=== PATIENT | male | born 1955 | race Caucasian/White ===

== ENCOUNTER 2016-09-24 13:33 | Day surgery (SDC) | payer OTHER ==
--- NOTE | ~2016-09-24 | OP ---
Record Of Operation [facility] [address] [place]. [address] NAME: MARNIE SHELDON : 53 STATUS : [facility] PAT#: [id number] AGE: 60 ADM/REG DATE : 09/24/16 MR#: [id number] REPORT SERV DATE: 09/25/16 DICTATED BY: STEPHANIE AMADOR DATE: 09/24/16 REPORT STATUS : Draft TRANSCRIBED BY: MODL DATE: 09/24/16 DATE OF PROCEDURE: 09/24/2016 PREOPERATIVE DIAGNOSIS: Left knee medial meniscal tear. 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 PROCEDURE: Left knee arthroscopy with partial medial meniscectomy, mechanical and thermal chondroplasty patellofemoral joint, medial and lateral femoral condyle and debridement of notch with removal of osteophyte. SURGEON: Stephanie Amador M.D. BOBBIN WINDER: Zhanna Sawyer. ANESTHESIA: General anesthetic. ESTIMATED BLOOD LOSS: 5 mL. FLUID: 800 mL crystalloid. TOURNIQUET TIME: Zero. DRAINS: None. COMPLICATIONS: None. INDICATION: This 60-year-old patient presented to office with an injury to his knee with radiographs which were showing minimal arthritic change. MRI scan indicated medial meniscal tear. He had pain in the medial joint. The patient was apprised of diagnosis and treatment recommendations for operative treatment for knee arthroscopy. He understood the possible risks and complications, agreed to proceed. DESCRIPTION OF PROCEDURE: He was identified in the preop holding area. His operative site was marked with yes. The patient was taken to the operating suite and placed in supine position on the operating table. General anesthetic was successfully administered. The patient's left lower extremity was then prepped and draped to expose the knee circumferentially in the leg proctor. A time-out was called. He was identified, correct operative extremity identified, and verification of antibiotic Ancef administration. The patient had a stab incision placed laterally to parapatellar tendon with an #11 scalpel blade. The arthroscope was introduced. The medial port was established under needle localization as a working portal, with again a stab incision. The patient had shaver introduced and partial anterior synovectomy was performed. Notch osteophytes were noted which were debrided as well as some synovitis in the notch area. The patellofemoral joint Record Of [place] [address] [place]. [address] NAME: MARNIE SHELDON : 53 STATUS : [facility] PAT#: [id number] AGE: 60 ADM/REG DATE : 09/24/16 MR#: [id number] REPORT SERV DATE: 09/25/16 DICTATED BY: STEPHANIE AMADOR DATE: 09/24/16 REPORT STATUS : Draft TRANSCRIBED BY: MODTereza DATE: 09/24/16 also was debrided using the shaver as well as lateral medial femoral condyle particularly 60% of the medial femoral condyle weightbearing zone. The meniscus showed a complex tear which was debrided using shaver and basket rongeur in a V-shaped pattern. Posterior horn was stable. Lateral meniscus was unremarkable as was the lateral tibial plateau and medial tibial plateau with only grade 1 fraying. A femoral device was then used to contour the surfaces of the patellofemoral joint, lateral femoral condyle and tibial plateau medially as well as the notch area. A spinal needle was then used to trephinate the meniscal tear to promote healing. The knee was irrigated with copious amounts of saline and evacuated. Instillation of 0.5% bupivacaine with epinephrine was injected in the knee joint and the portal sites. Each of the portal sites were closed using 3-0 Monocryl interrupted suture. Mastisol and Steri-Strips were then placed. Xeroform gauze, sterile dry gauze, cast padding, and bias roll with tape. The patient was placed in ice pack knee device, was awakened, extubated, and transferred to the postanesthesia care unit in satisfactory condition having tolerated the procedure well. Sponge and needle counts were correct at the close of procedure. EC/MODL Stephanie Amador M.D. / [id number] CC: Rubina Mckinney M.D.
[~2016-09-24 13:33] MED LIST: ASAB PO; MULTIVITAMI1 PO
[2016-09-24 14:08] LABS: HEMATOCRIT 44.6 % (36.0-48.0)
== END 2016-09-24 21:09 | disposition home or self-care (01) ==
LOC: SDC 13:33
PROVIDERS: Orthopaedic Surgery
PROC: 0SBD4ZZ Excision of Left Knee Joint, Percutaneous Endoscopic Approach (ICD-10-PCS; principal; 2016-09-24 15:30)
DX: S83.232A Complex tear of medial meniscus, current injury, left knee, initial encounter (principal); X58.XXXA Exposure to other specified factors, initial encounter; Y93.9 Activity, unspecified; M22.42 Chondromalacia patellae, left knee; M25.762 Osteophyte, left knee; Z98.890 Other specified postprocedural states; Z79.82 Long term (current) use of aspirin; Z79.899 Other long term (current) drug therapy; Z86.010 Personal history of colon polyps; Z87.442 Personal history of urinary calculi
CPT/HCPCS: 85014; 85018; 88304; 93005; J0330; J0690; J2250; J2270; J2405; J2795; J3010